=== PATIENT | male | born 1930 | race Caucasian/White ===

== ENCOUNTER → 2018-07-02 | Outpatient (CLI) | payer MEDICARE ==
[~2018-07-02] MED LIST: IOHEXOL 240 MG/ML 50ML VIAL. PO ONE
--- NOTE | 2018-07-02 16:23 | RAD ---
EXAM: CT Chest, Abdomen and Pelvis without IV contrast CLINICAL HISTORY: Prostate cancer COMPARISON: None available TECHNIQUE: Helical CT of the chest, abdomen and pelvis was performed without intravenous contrast. Oral contrast was administered. Axial, coronal and sagittal reformatted images were generated. ---PQRS compliance statement - One or more of the following individualized dose reduction techniques were utilized for this study: 1. Automated exposure control 2. Adjustment of the mA and/or kV according to patient size 3. Use of iterative reconstruction technique--- FINDINGS: Lack of intravenous contrast limits evaluation of solid organs, vasculature, and lymph nodes. Chest: The heart is mildly enlarged. Pericardial effusion. Coronary artery calcifications are seen. Atherosclerotic ulcerations of the aorta are seen most prominent at the arch. No mediastinal or hilar lymphadenopathy within the constraints of noncontrast exam. No axillary lymphadenopathy. Moderate to large bilateral pleural effusions. No pneumothorax. A 6 mm middle lobe and nodular density is mildly spiculated with associated groundglass opacity. No definite additional lung nodule seen. Bilateral lower lobe parenchymal airspace opacities are seen, favor dependent atelectasis given the associated volume loss. Abdomen and Pelvis: No definite liver lesion is seen. The gallbladder is distended but otherwise unremarkable. No biliary ductal dilatation. Spleen is unremarkable. Small splenule seen. Adrenal glands are normal. Pancreas is unremarkable. Multiple right renal hypodense lesions are seen, the larger one measure fluid density and the smaller ones are too small to accurately characterize. No hydronephrosis. Mild mesenteric infiltration is noted. Moderate colonic stool content is seen. The appendix is normal. Small volume of upper abdominal ascites. Bladder is decompressed. Radiopaque densities in the region of the prostate, with somewhat diminutive appearance of the prostate question prior prostatectomy or TURP changes. Small fat-containing bilateral inguinal hernias is seen. Diffuse subcutaneous soft tissue edema may suggest volume overload status. Bones: Multilevel degenerative changes of the spine are seen. IMPRESSION: 1. Mildly spiculated 6 mm right middle lobe lung nodule is seen. Consider short interval follow-up in 3 months to assess for interval change. 2. Moderate to large bilateral pleural effusions are seen. Associated lung base opacities likely compressive type atelectasis. 3. No thoracic, abdominal or pelvic lymphadenopathy within the constraints of this noncontrast examination. Electronically signed by: Richy Quintanilla MD (07/02/2018 4:18 PM) [facility]
--- NOTE | 2018-07-02 17:36 | RAD ---
EXAM: Metastatic Survey DATE: 07/02/2018 11:20 AM CLINICAL INDICATION: AMYLOIDOSIS COMPARISON: No prior TECHNIQUE: Survey images of the skull, axial skeleton, pelvis and proximal appendicular skeleton submitted. PA view of the chest also submitted. FINDINGS: Lateral view of the skull is negative for focal lytic or blastic abnormality. Negative for acute fracture or sutural diastasis. Survey of the axial skeletal shows mild to moderate degenerative changes of the cervical and lumbar spine. 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 Transitional lumbosacral anatomy with incomplete segmentation or partial fusion. Negative malalignment. Negative focal lytic or blastic abnormality. Negative compression fracture. Preserved bone density at the axial skeleton. AP view of the pelvis is negative for focal lytic or blastic abnormality Preserved bone density at the pelvis. Negative pathologic fracture. Hip joint spaces are preserved bilaterally. Survey of the proximal appendicular skeleton is negative for focal lytic or blastic abnormality, or endosteal scalloping. Negative pathologic fracture. Bone density is preserved throughout. Chondrocalcinosis bilateral knees. Atherosclerotic vascular calcifications are seen. Diffuse soft tissue swelling about the lower extremities bilaterally. PA chest exam is negative for expansile rib lesion. Cardiac silhouette size normal. Changes of core valve are seen. Right IJ vascular catheter tip projects over the right atrium. Small bilateral pleural effusions are seen. Associated lung base opacities likely atelectasis. Negative lytic or blastic abnormality of the visualized marginal bony skeleton. IMPRESSION: 1. Negative metastatic survey for findings of skeletal involvement with lytic or blastic lesion. 2. Multifocal degenerative changes are seen. 3. No gross evidence for amyloid arthropathy on this skeletal survey. 4. Bilateral pleural effusions and lung base opacities. 5. Mild lower extremity edema bilaterally. Electronically signed by: Richy Quintanilla MD (07/02/2018 5:32 PM) [facility]
== END | disposition home or self-care (01) ==
LOC: CT 10:51
PROVIDERS: ATTEND Internal Medicine Hematology & Oncology
DX: J90 Pleural effusion, not elsewhere classified (principal); K82.8 Other specified diseases of gallbladder; J98.11 Atelectasis; I71.2 Thoracic aortic aneurysm, without rupture; K40.20 Bilateral inguinal hernia, without obstruction or gangrene, not specified as recurrent; R91.1 Solitary pulmonary nodule; R18.8 Other ascites; N28.89 Other specified disorders of kidney and ureter; I25.10 Atherosclerotic heart disease of native coronary artery without angina pectoris; I51.7 Cardiomegaly; M11.20 Other chondrocalcinosis, unspecified site; M25.78 Osteophyte, vertebrae; I70.0 Atherosclerosis of aorta
CPT/HCPCS: 71250; 74176; 77075; Q9966

== ENCOUNTER 2018-07-09 07:19 | Outpatient (CLI) | payer MEDICARE ==
[~2018-07-09] VITALS: Ht 177.8 cm; Wt 81.6 kg
[2018-07-09] VITALS (9 sets, daily range): BP systolic 90–107; BP diastolic 46–59
[2018-07-09] MEDS ORDERED: CETI10TA22 PO (07:51)
[2018-07-09] MEDS ORDERED: MULT1TAB52 PO (07:51)
[2018-07-09] MEDS ORDERED: CRESTOR20 MG PO (07:51)
[2018-07-09] MEDS ORDERED: DIPH25CA58 PO (07:51)
[2018-07-09] MEDS ORDERED: [UNRECOGNIZED DRUG - OTHER] PO (07:51)
[2018-07-09 08:16] LABS: BASO % 1 % (0-3); EOS # 0.1 x10^3/uL (0.0-0.7); EOS % 2 % (0-3); HEMATOCRIT 24.8 % (39.0-53.0); HEMOGLOBIN 8.2 g/dL (13.0-17.5); LYMPH # 1.2 x10^3/uL (1.0-4.8); LYMPH % 18 % (24-48); MEAN CORPUSCULAR HEMOGLOBIN 30 pg (25-35); MEAN CORPUSCULAR HGB CONC 33 g/dL (31-37); MEAN CORPUSCULAR VOLUME 92 fL (79-100); MONO # 0.4 x10^3/uL (0.0-1.1); MONO % 6 % (0-9); NEUT # 4.6 x10^3uL (1.8-7.7); NEUT % 73 % (31-73); PLATELET COUNT 59 x10^3/uL (140-400); RED CELL DISTRIBUTION WIDTH 18.5 % (11.5-14.5); WHITE BLOOD COUNT 6.3 x10^3/uL (4.0-11.0)
[2018-07-09 08:25] LABS: PROTHROMBIN TIME PATIENT 15.6 SEC (11.7-14.0)
[2018-07-09] MEDS ORDERED: MIDAZOLAM HCL/PF 2 MG/2 ML VIAL. ONE (08:27)
[2018-07-09] MEDS ORDERED: fentaNYL PF VIAL 100 MCG/2 ML VIAL ONE (08:27)
[2018-07-09] MEDS ORDERED: LIDOCAINE WITH 8.4% SOD BICARB 3 ML DISP.SYRIN. ONE (08:30)
[2018-07-09] MEDS ORDERED: fentaNYL PF VIAL 100 MCG/2 ML VIAL IV ONE (09:00)
[2018-07-09] MEDS ORDERED: LIDOCAINE WITH 8.4% SOD BICARB 3 ML DISP.SYRIN. IJ ONE (09:00)
[2018-07-09] MEDS ORDERED: MIDAZOLAM HCL/PF 2 MG/2 ML VIAL. IV ONE (09:00)
--- NOTE | 2018-07-09 10:25 | NUR ---
Pt A&Ox3. denies pain, nausea or dizziness. VSS. tolerating po well. dressing on left sacral site clean and dry. pt has small skin tear on left back shoulder area from where an EKG sticker was removed. site dressed with xeroform and gauze and paper tape. no bleeding from this site. d/c instructions reviewed w/pt and spouse. questions answered. out to vehicle per w/c. to drive home.
--- NOTE | 2018-07-09 11:49 | RAD ---
CT-guided bone marrow biopsy. 07/09/2018 11:44 AM Indication: Amyloidosis Discussion: The risks and benefits of the procedure, including but not limited to, bleeding and infection were discussed patient. Informed consent was obtained. The patient was brought to the CT scanner and placed in the prone position. A timeout procedure was performed. Bunghole Borer CT imaging of the pelvis demonstrated left ilium amenable to bone marrow biopsy. The overlying soft tissues were prepped and draped using maximum sterile barrier technique. 1% lidocaine without epinephrine was administered for local anesthesia. Under intermittent CT guidance, an OncControl needle was advanced into the bone marrow of the left iliac crest. 2 Aspirates and 1 core biopsy samples were obtained. Samples were delivered to pathology was present at the time of procedure. The needle was removed and manual pressure held to achieve hemostasis. No immediate complications were identified. The procedure was performed under conscious sedation including continuous cardiopulmonary monitoring via dedicated sedation nurse. Sedation time: 20 minutes Impression: Successful CT-guided bone marrow biopsy of the left iliac crest . PQRS Compliance Statement: One or more of the following individualized dose reduction techniques were utilized for this examination: 1. Automated exposure control 2. Adjustment of the mA and/or kV according to patient size 3. Use of iterative reconstruction technique
--- NOTE | 2018-07-22 12:10 | PATHOLOGY ---
[facility] Accession Number: [id number] . 01 Material submitted: . PART A: BONE MARROW BIOPSY PART B: BONE MARROW CLOT PART C: BONE MARROW ASPIRATE PART D: PERIPHERAL BLOOD PART E: BONE MARROW FLOW . 01 Clinical history: . Amyloidosis . 02 Diagnosis: Peripheral smear: - Normocytic normochromic anemia, moderate. - Thrombocytopenia, moderate. . Bone marrow, aspirate smears, clot section, and core biopsy: - Normocellular marrow showing trilineage hematopoiesis, no significant dyspoiesis, focal vascular amyloidosis, and mild plasmacytosis with population of monoclonal plasma cells identified by flow cytometry. See description and comment. - Adequate reticuloendothelial iron stores. LBQ/07/21/2018 . 02 Comment: The peripheral smear shows moderate normocytic normochromic anemia and moderate thrombocytopenia. The bone marrow is normocellular and shows trilineage hematopoiesis, no significant dyspoiesis, focal vascular amyloidosis, and a mild plasmacytosis. Flow cytometry shows a small population of monoclonal plasma cells (2.1%). Immunoperoxidase stains obtained on the biopsy and clot section show approximately 10-15% plasma cells. In situ hybridization for kappa and lambda light chain show a dominant population of kappa plasma cells and a small population of lambda plasma cells. 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 . The case is also examined by Dr. Bah, who concurs with the diagnosis. . 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 Iron stain on C1, B1 Retic stain on A1 Congo red stain on A1 CD138 on A1 and B1 MICHAEL for kappa light chain on A1 and B1 MICHAEL for lambda light chain on A1 and B1 . 02 Electronically signed: . Christiano Figueroa MD, Pathologist NPI- [id number] . 01 Gross description: . A. Received in formalin labeled "Krish Monge BM BX," are multiple fragments of needle cores of hickman bone measuring 1.6 x 0.4 x 0.2 cm in aggregate dimensions. The specimen is filtered and submitted entirely in cassette A1, following decalcification. . B. Received in formalin labeled "Krish Monge BM ASP clot," is an aggregate of dark hickman blood clot measuring 3.1 x 2.5 x 0.4 cm in aggregate dimensions. The specimen is filtered and entirely submitted in cassette B1. (TSD; 07/09/2018) TOB/TOB . 02 Microscopic: . Laboratory Data: The WBC count is 6.3 K/CMM, and the automated WBC differential reveals 73% neutrophils, 18% lymphs, 6% monos, 2% eos, and 1% baso. The RBC count is 2.70 M/CMM, hemoglobin 8.2 G/DL, hematocrit 24.8%, MCV 92 FL, MCH 30 PG, MCHC 33 G/DL, and the RDW is 18.5%. The platelet count is 59 K/CMM. Additional laboratory studies are obtained from Dr. Martin' office. The creatinine is 4.75 MG/DL, total protein 5.7 G/DL, albumin 3.0 G/DL, and globulin 2.7 G/DL. 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 Serum immunofixation reveals no paraprotein seen. The serum IgG is 744 MG/DL, IgA 418 MG/DL, and IgM 52 MG/DL. The serum free kappa light chain is 69.40 MG/DL, lambda free light chain 5.80 MG/DL, and the kappa/lambda FLC ratio is 11.97. 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 . Peripheral Smear: The WBC count is normal. The WBC differential reveals a predominance of segmented neutrophils, with smaller populations of lymphocytes and monocytes noted. Neutrophils do not show dysplastic changes. There is no significant neutrophilic left shift. There are no circulating blasts or leukoerythroblastic reaction. The lymphocyte population consists predominantly of small lymphocytes. Red blood cells predominantly appear normochromic and normocytic. Red blood cells show mild anisocytosis and mild poikilocytosis with several ovalocytes and a few red blood cell fragments noted. There is no red blood cell rouleaux. Platelets are moderately decreased and appear normal in morphology with an occasional large platelet noted. . Aspirate Smears: Two Meyer's-stained and one iron-stained aspirate smears are examined. The smears contain multiple marrow particles. Erythroid maturation predominantly appears normoblastic. Occasional dysplastic erythroid precursors showing mild megaloblastoid changes and irregular nuclear shapes are noted. Granulopoiesis qualitatively appears normal. There is no significant left shift or dysplastic changes. There is no increase of blasts. Megakaryocytes appear adequate in number and are of variable ploidy. There are foci of mild plasmacytosis, showing between 5% and 10-15% plasma cells. Other areas show a smaller proportion of plasma cells. The plasma cells vary from small and mature to mildly enlarged and atypical. There is no increase of lymphocytes. There are no cells foreign to the marrow. The iron stain contains only a single small marrow particle showing focal granular iron stores. . Bone Marrow Biopsy and Clot Sections: Sections of the bone marrow biopsy reveal a segment of bone marrow which is on the order of 20-30% cellular. The clot section contains multiple marrow particles, the majority of which range between 20% and 30-40% cellular. There is trilineage hematopoiesis. There is a good admixture of erythroid and granulocytic precursors, which are present in varying stages of maturation. There is no increase of blasts. Megakaryocytes appear adequate in number and are of variable ploidy. There is a small non-paratrabecular lymphoid aggregate present in the biopsy comprised of small lymphocytes. The biopsy also shows a few small thick-walled blood vessels having an eosinophilic smudged appearance. There are scattered admixed plasma cells with no solid clusters or areas of sheet-like replacement by plasma cells noted. The plasma cells have a relatively mature appearance or are mildly enlarged. To confirm flow cytometric findings and characterize the target cells in a tissue architectural context, immunoperoxidase stain for CD138 and in situ hybridization for kappa and lambda light chain are obtained on the biopsy and clot section and yield the following results: . CD138 (A1): Plasma cells positive scattered throughout marrow and around blood vessels; plasma cells comprise 10-15% of nucleated marrow cells . Renick and lambda MICHAEL (A1): Dominant population of kappa plasma cells and small population of lambda plasma cells noted. . CD138 (B1): Plasma cells positive scattered throughout marrow and focally around blood vessels; plasma cells comprise 10-15% of nucleated marrow cells . Renick and lambda MICHAEL (B1): Dominant population of kappa plasma cells with a small population of lambda plasma cells noted . A reticulin stain obtained on the biopsy shows no significant reticulin fibrosis. A Congo red stain obtained on the biopsy is positive in the thick-walled blood vessels and shows apple-green birefringence. An iron stain obtained on the clot section shows adequate reticuloendothelial iron stores. No ringed sideroblasts are identified. . Special Studies: Bone marrow submitted for flow cytometry has a viability of 90%. Granulocytes comprise 70.8% of total cells and shows phenotypic evidence of maturation. Monocytes comprise 3.2% of total cells and co-express CD14 and CD64. CD45 dim, CD34 positive cells comprise 0.6% of total cells. Lymphocytes comprise 17.2% of total cells. T-cells comprise 69% of lymphoid cells and show a CD4/CD8 ratio of 2.6. NK-cells comprise 10% of lymphoid cells. Mature B-cells comprise 20% of lymphoid cells and are polyclonal with a kappa:lambda ratio of 1.1. There is a population of monoclonal plasma cells comprising 2.1% of total cells. These plasma cells are CD38, CD56, and CD138 positive and show cytoplasmic kappa light chain restriction. . Bone marrow submitted for cytogenetic analysis reveals a normal male karyotype in all cells analyzed. (JPM:snaker tractor driver:db; 07/20/2018) . 02 Pathologist provided ICD-10: D64.9, D69.6, D75.89 . 02 CPT . 766964, 327525, 828664, 867188, 554384, 901432, 753026, 184414, [id number], [id number], D11806, X05075 Specimen Comment: A courtesy copy of this report has been sent to Specimen Comment: [phone], . Specimen Comment: Report sent to / DR MARTIN Specimen Comment: A duplicate report has been generated due to demographic updates. Performed at: [address], [place], [place] [id number] MD Taj Archibald MD Phone: [phone] Performed at: [address] [facility] [address], [place] [id number] MD Christiano Figueroa MD Phone: [phone]
== END 2018-07-09 10:25 | disposition home or self-care (01) ==
LOC: INTRAD 07:19
PROVIDERS: ATTEND Internal Medicine Hematology & Oncology
DX: E85.9 Amyloidosis, unspecified (principal); D64.9 Anemia, unspecified
CPT/HCPCS: 36415; 38222; 77012; 85025; 85610; 88184; 88185; 88237; 88305; 88311; 88313; 88342; 88364; 88365; 99152; J2250; J3010